=== PATIENT | male | born 1985 | race Caucasian/White ===

== ENCOUNTER 2018-04-12 17:21 | Inpatient (IN) | payer SELFPAY ==
[~2018-04-12] VITALS: Ht 180.3 cm; Wt 114.8 kg
[~2018-04-12 17:21] MED LIST: CEFAZOLIN 2 GM IVPB PREMIX 50 ML IV ONE; LR 1,000 ML IV.SOLN IV ONE; MIDAZOLAM HCL 5 MG/5 ML VIAL IVP ONE; PROPOFOL 200MG/ 20ML VIAL (DIPRIVAN) IV ONE; ROCURONIUM BROMIDE 10 MG/ML (ZEMURON) IV ONE; SEVOFLURANE 15 MIN GAS INH ONE; fentaNYL CITRATE 250 MCG/5 ML AMP IV ONE
[2018-04-12 17:30] VITALS: BP_SYST 164; BP_SYST 178
--- NOTE | 2018-04-12 17:35 | NUR ---
Patient triaged and placed in waiting room. VSS and patient appears in no acute distress at this time. Accompanied by GIRLFRIEND, awaiting available bed, and MD notified of need for MSE.
--- NOTE | 2018-04-12 19:45 | NUR ---
Pt is AAOx4 and ambulatory. Pt c/o intermittent RLQ abd pain x2days, 7/10 on pain scale. Pt states pain also radiates to upper back. Pt states that when pain first started urine was darker than usual, but since then he has been drinking water and it has cleared up. Pt also states +n and dizzness, but no vomitting. Pt has been using hot compresses and took ibuprofen last night to no relief. Will continue to monitor pt.
--- NOTE | 2018-04-12 19:45 | NUR ---
Placed in room 08 . Placed on brazing machine feeder, blood pressure machine and pulse oximeter. To gown for exam. Side rails up. Report given to MINDY Powell.
[2018-04-12] MEDS ORDERED: NACL 0.9% 1,000 ML IV ONE (20:05)
--- NOTE | 2018-04-12 20:05 | NUR ---
ER at bedside examining patient.
--- NOTE | 2018-04-12 20:12 | NUR ---
Pt ambulatory to radiology for CT accompanied by flight radio officer.
[2018-04-12] MEDS ORDERED: MORPHINE 4 MG/ML INJ. SYRINGE IVP ONE (20:15)
[2018-04-12] MEDS ORDERED: ONDANSETRON HCL 4 MG/2 ML VIAL IVP ONE (20:15)
--- NOTE | 2018-04-12 20:19 | NUR ---
Pt back from CT in stable condition
--- NOTE | 2018-04-12 20:30 | NUR ---
# 20 gauge angiocath placed to LFA. Use of asceptic technique. Opsite placed over site. Blood return noted. Blood for lab drawn from site. Flushed with 10 cc of normal saline. No evidence of infiltration noted. Patient tolerated well.
[2018-04-12 20:51] LABS: BASOPHILS # (AUTO) 0.1 K/uL (0.0-0.2); BASOPHILS % (AUTO) 0.4 % (0.0-2.0); EOSINOPHILS % (AUTO) 0.3 % (0.0-4.0); HEMATOCRIT 45.1 % (36-54); HEMOGLOBIN 15.4 g/dL (14.0-18.0); LYMPHOCYTES # (AUTO) 1.7 K/uL (1.0-5.5); LYMPHOCYTES % (AUTO) 10.4 % (20.5-51.5); MEAN CORPUSCULAR HEMOGLOBIN 30 pg (27-31); MEAN CORPUSCULAR HGB CONC 34 % (32-36); MEAN CORPUSCULAR VOLUME 87 fL (79.0-98.0); MONOCYTES % (AUTO) 6.5 % (1.7-9.3); NEUTROPHILS # (AUTO) 13.2 K/uL (1.8-7.7); NEUTROPHILS % (AUTO) 82.4 % (40.0-70.0); PLATELET COUNT (AUTO) 263 K/uL (130-430); RED BLOOD CELL COUNT(AUTO) 5.17 MIL/uL (4.2-6.2); RED CELL DISTRIBUTION WIDTH 11.7 % (9.0-15.0)
[2018-04-12 21:04] LABS: CALCIUM 9.9 mg/dL (8.4-11.0); INR 1.2 (0.80-1.20); POTASSIUM 3.8 mmol/L (3.5-5.1); PROTHROMBIN TIME 11.8 SECS (9.5-12.5)
[2018-04-12 21:10] LABS: ALBUMIN 3.9 g/dL (3.4-4.8)
[2018-04-12] MEDS ORDERED: cefTRIAXone 1 GM IVPB PREMIX 50 ML IV ONE (21:30)
[2018-04-12] MEDS ORDERED: metroNIDAZOLE 500 mg/NS 100 ML IV ONE (21:30)
[2018-04-12] MEDS ORDERED: KCL 20 mEq in D5/0.45NS 1000mL 1,000 ML IV ONE (21:30)
[2018-04-12] MEDS ORDERED: MORPHINE 4 MG/ML INJ. SYRINGE IVP PRN (22:00)
[2018-04-12] MEDS: PIPERACILLIN/TAZO 3.375/DEX-IS 50 ML IV SCH (22:00)
--- NOTE | 2018-04-12 22:05 | NUR ---
ADMISSION NOTE Received patient from ER via uriel, received report from KY GUILLEN. Patient admitted with diagnosis of ABDOMINAL PAIN, POSSIBEL APPENDICITIS. Patient oriented to hospital routine, call light, toileting and safety-patient verbalized understanding.
[2018-04-12 22:14] VITALS: BP_SYST 163
--- NOTE | 2018-04-12 22:14 | NUR ---
Patient will be admitted to care of DR. CHIU. Admitted to MST unit. Will go to room 130B. Belongings list completed. Summary report printed. Report will be given at bedside.
[2018-04-12] MEDS ORDERED: PIPERACILLIN/TAZOBACTAM 3.375 GM/VIAL (ZOSYN) IV ONE (22:27)
--- NOTE | 2018-04-12 22:45 | NUR ---
INITIAL NOTES/PHYSICAL ASSESSMENT NOTES: report given by nurse Olivera, admitted from ER , awake, alert, oriented to room ,use of call light, IV antibiotic infusing via left forearm. Instructed to be NPO, asking for ice chips and telling me Morphine did not work, will call MD. pt. quite anxious, wants also sleeping pill. keep 2 side rails up. pt. aware of surgical consult in am.
[2018-04-12 23:30] VITALS: BP_SYST 164
--- NOTE | 2018-04-12 23:30 | NUR ---
NOTES: called Dr. Myers about pt. issues. Informed about the BP 164/100. said no sleeping pill and change pain med to Dilaudid IV, call Dr. Rae about ice chips.
--- NOTE | 2018-04-12 23:37 | NUR ---
NOTES: paged Dr. Rae and call back and informed him about the pt., no ice chips, kept NPO, order pelvic US,labs in am and another IIV antibiotic of Levaquin and pt. informed.
[2018-04-12] MEDS ORDERED: hydrALAZINE HCL 20 MG/ML VIAL IVP PRN (23:45)
[2018-04-13] MEDS: HYDROmorphone 2 MG/ML VIAL IVP PRN ×3 (00:05→21:43)
--- NOTE | 2018-04-13 00:05 | NUR ---
NOTES: IV Dilaudid given for c/o rt. sided abdominal pain, no nausea nor vomiting. IVF of D51/2 NS with 20 meq @ 150 ml/hr via left forearm. still needs urine for U/A. pt. family at bedside. manda light within reach.
[2018-04-13 01:00] VITALS: BP_SYST 160
--- NOTE | 2018-04-13 01:54 | NUR ---
NOTES: noted some relief from Dilaudid but still awake with family at bedside. continue to observe.
[2018-04-13 03:57] LABS: BILIRUBIN,URINE NEGATIVE (NEGATIVE); BLOOD, URINE NEGATIVE (NEGATIVE); CLARITY/URINE CLEAR (CLEAR); COLOR,URINE YELLOW (YELLOW); GLUCOSE,URINE NEGATIVE (NEGATIVE); KETONES,URINE 3+ (NEGATIVE); LEUKOCYTE ESTERASE ,URINE NEGATIVE (NEGATIVE); NITRITE, URINE NEGATIVE (NEGATIVE); PROTEIN URINE NEGATIVE (NEGATIVE); UROBILINOGEN,URINE 0.2 (0.2-1.0)
[2018-04-13 04:28] LABS: RBC,URINE NONE SEEN /HPF (0-3)
[2018-04-13 04:29] LABS: BACTERIA,URINE FEW /HPF (None Seen); MUCUS,URINE None Seen /LPF (None Seen); WBC,URINE 0-3 /HPF (0-3)
--- NOTE | 2018-04-13 04:47 | NUR ---
CONSULTATION CALLED REASON FOR CONSULTATION: ACUTE ABDOMINAL PAIN WAS CONSULT CALLED? Y PERSON WHO WAS NOTIFIED: ABHILASH CONSULTING PHYSICIAN: DR. LAST CONSULTING PHYSICIAN'S NUMBER: [id number] ORDERING PHYSICIAN: DR. CHIU
--- NOTE | 2018-04-13 05:00 | NUR ---
NOTES: pt. been sleeping, awakened for am lab draw.
[2018-04-13] MEDS ORDERED: PIPERACILLIN/TAZOBACTAM 3.375 GM/VIAL (ZOSYN) IV ONE (05:07)
[2018-04-13] MEDS: PIPERACILLIN/TAZO 3.375/DEX-IS 50 ML IV SCH ×5 (06:00→23:09)
--- NOTE | 2018-04-13 06:30 | NUR ---
CLOSING NOTES: pt. checked, about to give pain med but was sleeping. IVF infusing. kept NPO, schedule for pelvic ultrasound this am, charge nurse Filomena ayala.
[2018-04-13 06:44] LABS: CALCIUM 8.8 mg/dL (8.4-11.0); CREATININE 0.9 mg/dL (0.55-1.30); POTASSIUM 3.9 mmol/L (3.5-5.1)
[2018-04-13 07:07] LABS: BASOPHILS % (AUTO) 0.3 % (0.0-2.0); EOSINOPHILS # (AUTO) 0.1 K/uL (0.0-0.4); EOSINOPHILS % (AUTO) 0.6 % (0.0-4.0); HEMATOCRIT 39.5 % (36-54); HEMOGLOBIN 13.2 g/dL (14.0-18.0); LYMPHOCYTES # (AUTO) 1.5 K/uL (1.0-5.5); LYMPHOCYTES % (AUTO) 13.7 % (20.5-51.5); MEAN CORPUSCULAR HEMOGLOBIN 29 pg (27-31); MEAN CORPUSCULAR HGB CONC 34 % (32-36); MEAN CORPUSCULAR VOLUME 87 fL (79.0-98.0); MONOCYTES % (AUTO) 8.8 % (1.7-9.3); NEUTROPHILS # (AUTO) 8.7 K/uL (1.8-7.7); NEUTROPHILS % (AUTO) 76.6 % (40.0-70.0); PLATELET COUNT (AUTO) 204 K/uL (130-430); RED BLOOD CELL COUNT(AUTO) 4.53 MIL/uL (4.2-6.2); RED CELL DISTRIBUTION WIDTH 11.5 % (9.0-15.0)
--- NOTE | 2018-04-13 07:15 | NUR ---
endorsed pt. to incoming shift with nurse Noe. Addendum: 04/13/18 at 0815 by Neha Erwin RN Dr. Rae here and verify about the pelvic Ultrasound, still wants it done R/O cecal mass per .
--- NOTE | 2018-04-13 07:20 | NUR ---
NOTES: asked nurse Joselin to call ultrasound to inform Dr. Rae still wants pelvic ultrasound done. paged Dr. Montesinosium also to inform about the prn Hydralazine IV that the hospital is out, need to replace and IVF to follow up with the current IVF, endorsed to Hasmukh.
--- NOTE | 2018-04-13 07:22 | NUR ---
Initial Note Received report from the night nurse Neha. Pt AOX4. No sign of distress noted at this time. Bed is at lowest position with bed alarm on. Call light within reach
--- NOTE | 2018-04-13 07:22 | NUR ---
PAGED PAGED BAYLEE BERRIOS AT [phone] SPOKE WITH ANASTASIA.
[2018-04-13 07:24] LABS: WHITE BLOOD COUNT (AUTO) 11.3 K/uL (4.8-10.8)
[2018-04-13 07:45] VITALS: BP_SYST 158
[2018-04-13] MEDS: NACL 0.9% 1,000 ML IV SCH ×2 (08:56→18:45)
--- NOTE | 2018-04-13 09:27 | NUR ---
RN Rounds Pt awake and does not show any sign of distress at this time. Bed is at lowest position with bed alarm on. Call light within reach.
--- NOTE | 2018-04-13 10:59 | NUR ---
Social Service Note: JIG GRINDER has completed the discharge plan assessment; pt has no anticipated needs upon discharge. Pt is self-pay, no insurance. Pt does not qualify for [facility]. [facility] has provided pt with a prescription discount card and listing of local [facility] clinics for follow up. JIG GRINDER will follow up as needed.
[2018-04-13 12:00] VITALS: BP_SYST 154
--- NOTE | 2018-04-13 12:30 | NUR ---
RN Rounds Pt resting and does not show any sign of distress at this time. Bed is at lowest position with bed alarm on. Call light within reach.
--- NOTE | 2018-04-13 13:15 | NUR ---
Pt taken by OR personnel for laparoscopic vs open appendectomy
[2018-04-13] MEDS ORDERED: fentaNYL CITRATE/PF 100 MCG/2 ML AMP ONE (16:11)
[2018-04-13] MEDS ORDERED: KETOROLAC TROMETHAMINE 30 MG VIAL ONE (16:11)
[2018-04-13] MEDS ORDERED: ONDANSETRON HCL 4 MG/2 ML VIAL ONE (16:13)
[2018-04-13] MEDS ORDERED: KETOROLAC TROMETHAMINE 30 MG VIAL IVP PRN (16:15)
[2018-04-13] MEDS ORDERED: fentaNYL CITRATE/PF 100 MCG/2 ML AMP IVP PRN ×2 (16:15)
[2018-04-13] MEDS ORDERED: ONDANSETRON HCL 4 MG/2 ML VIAL IVP PRN (16:15)
--- NOTE | 2018-04-13 17:10 | NUR ---
Pt back from OR. Pt in stable condition at the time of arrival. No sign of distress noted. Bed is at lowest position with bed alarm on. Call light within reach. Advised sima Vilchis INFORMATICS SCIENTIST to follow up V/S as protocol.
[2018-04-13] MEDS: metroNIDAZOLE 500 mg/NS 100 ML IV SCH ×2 (17:45→21:42)
--- NOTE | 2018-04-13 18:37 | NUR ---
Closing Note Pt AOX4. Pt S/P Laparoscopic, and appendectomy. No sign of distress noted at this time. Bed is at lowest position with bed alarm on. Call light within reach. As per Monique RN from OR pt needs to be NPO. Pt has a Right FOUZIA drainage. 75 ml collected at OR. 30 ml during my shift, [id number].
--- NOTE | 2018-04-13 19:40 | NUR ---
Opening Notes Received patient in bed resting comfortably with family at the bedside. Patient is AAOx4 and able to verbalize his needs. Lungs and heart sound WNL with no respiratory distress. Patient has abdominal pain at 6/10. IV on the Left forearm 20 gauge clean dry and intact with no infiltration or signs of infection. Dressing on the abdomen intact clean with minimal saturation. Patient is NPO until further orders. Oriented the patient to the room and use of the call light. Bed in low position and bed alarm is on. Call light placed within reach and will cont to monitor on rounds. Addendum: 04/13/18 at 2357 by Homero Jones RN FOUZIA Drain on the right side emptied out 10ml red/pink color. No odor.
[2018-04-13 20:00] VITALS: BP_SYST 155
--- NOTE | 2018-04-13 20:46 | NUR ---
Spoke with Moncho from [facility] regarding missed ATB Flagyl at 1750. Pharmacist said its okay to skip that dose and continue to 2200 and 0600 doses. Charge nurse Li made aware.
--- NOTE | 2018-04-13 22:30 | NUR ---
Administered IV ATB and pain meds and tolerated well. Patient is comfortable in bed with tolerable pain. no sob noted. Will monitor on rounds for any changes.
--- NOTE | 2018-04-14 00:16 | NUR ---
Patient in bed asleep with no pain or respiratory distress observed. Call light within reach and will cont to monitor.
[2018-04-14 00:40] VITALS: BP_SYST 140
--- NOTE | 2018-04-14 02:15 | NUR ---
Patient in bed asleep. No appearance of pain or respiratory distress. FOUZIA drain was emptied with 50ml of drainage, Light red/pink in color with no odor.
[2018-04-14] MEDS: HYDROmorphone 2 MG/ML VIAL IVP PRN ×2 (04:18→08:10)
[2018-04-14] MEDS: NACL 0.9% 1,000 ML IV SCH ×2 (04:22→15:33)
--- NOTE | 2018-04-14 04:45 | NUR ---
Patient asleep with no change of condition.
[2018-04-14] MEDS: metroNIDAZOLE 500 mg/NS 100 ML IV SCH ×3 (05:00→21:17)
[2018-04-14] MEDS: PIPERACILLIN/TAZO 3.375/DEX-IS 50 ML IV SCH ×3 (06:18→17:42)
--- NOTE | 2018-04-14 06:54 | NUR ---
Closing Notes Patient awake and able to verbalize needs. Pain is being tolerated and well managed. No respiratory distress. FOUZIA drain had 5ml. All needs have been met and will endorse to the days shift nurse. Safety precautions in place and will endorse to the day shift nurse.
[2018-04-14 07:46] LABS: BASOPHILS % (AUTO) 0.1 % (0.0-2.0); EOSINOPHILS % (AUTO) 0.2 % (0.0-4.0); HEMATOCRIT 40.1 % (36-54); HEMOGLOBIN 13.7 g/dL (14.0-18.0); LYMPHOCYTES % (AUTO) 8.8 % (20.5-51.5); MEAN CORPUSCULAR HEMOGLOBIN 30 pg (27-31); MEAN CORPUSCULAR HGB CONC 34 % (32-36); MEAN CORPUSCULAR VOLUME 87 fL (79.0-98.0); MONOCYTES % (AUTO) 8.7 % (1.7-9.3); NEUTROPHILS # (AUTO) 9.7 K/uL (1.8-7.7); NEUTROPHILS % (AUTO) 82.2 % (40.0-70.0); PLATELET COUNT (AUTO) 222 K/uL (130-430); RED BLOOD CELL COUNT(AUTO) 4.59 MIL/uL (4.2-6.2); RED CELL DISTRIBUTION WIDTH 11.8 % (9.0-15.0); WHITE BLOOD COUNT (AUTO) 11.7 K/uL (4.8-10.8)
--- NOTE | 2018-04-14 08:00 | NUR ---
Patient is A/Ox4 and able to verbalize his needs. No distress. Patient has abdominal pain at 7/10. IV on the Left forearm 20 gauge clean dry and intact with no infiltration or signs of infection. Dressing noted on the mid abdomen, clean and intact. NPO. Instructed patient basket person lights, bed locked at the lowest position, will continue to monitor.
--- NOTE | 2018-04-14 08:10 | NUR ---
Pain medication: Medicated with Dilaudid 1mg IV push for sharp right abdominal pain level 6/10 per surgeon.
[2018-04-14 08:13] VITALS: BP_SYST 154
[2018-04-14 08:15] LABS: ALBUMIN 2.8 g/dL (3.4-4.8); CALCIUM 8.8 mg/dL (8.4-11.0); CREATININE 0.85 mg/dL (0.55-1.30); POTASSIUM 4.3 mmol/L (3.5-5.1); TOTAL BILIRUBIN 0.6 mg/dL (0.0-1.0)
--- NOTE | 2018-04-14 10:00 | NUR ---
Patient is at rest, no signs of distress noted.
--- NOTE | 2018-04-14 11:11 | NUR ---
Patient ambulated the hallway with one person's assistance, but requires two people to transfer from bed to dangling position.
[2018-04-14] MEDS: HYDROmorphone 1 MG INJ. 1 MG/ML AMPUL IVP PRN ×3 (11:40→20:06)
[2018-04-14 12:00] VITALS: BP_SYST 145
--- NOTE | 2018-04-14 12:00 | NUR ---
Patient is resting, no signs of distress noted.
--- NOTE | 2018-04-14 13:57 | NUR ---
patient is resting, with family at bedside. POC is explained. They verbalized understanding.
--- NOTE | 2018-04-14 15:40 | NUR ---
patient c/o Abdominal pain. 1mg Dilaudid is given via IVP. Will reassess.
[2018-04-14 16:00] VITALS: BP_SYST 143
--- NOTE | 2018-04-14 18:05 | NUR ---
Patient is resting at this time, no signs of distress noted.
[2018-04-14 20:40] VITALS: BP_SYST 154
--- NOTE | 2018-04-14 22:00 | NUR ---
DILAUDID 1 MG IVP ADMINISTER FOR GENERAL DISCOMFORT 03/27 & HELPFUL , RESTING this hour .
--- NOTE | 2018-04-14 22:39 | NUR ---
PATIENT AWAKE ALERT USING CELL PHONE @ THE BEDSIDE , ON ROOM AIR 02 SAT 98 % VERBALLY INDICATIVE CALL LEE WITH PATIENT SAFETY MEASURES EXPLAINED VERBALIZE UNDERSTANDING / .
--- NOTE | 2018-04-14 22:41 | NUR ---
YOUNG BARROS JP DRAIN INTACT TO RIGHT LOWER ABDOMEN LIGHT COLOR SERO SANG OUT PUT IS NOTED CONTINUE TO MONITOR / .
--- NOTE | 2018-04-14 22:41 | NUR ---
ABDOMINAL DRESSING CLEAN DRY ALSO INTACT NO ACTIVE BLEEDING NOTED / .
--- NOTE | 2018-04-15 | NUR ---
NOTE PATIENT IS RESTING IN BED, STABLE, NO SIGNS OF RESPIRATORY DISTRESS. CALL LIGHT WITHIN REACH. INCENTIVE SPIROMETER IS AT BEDSIDE. BED IS LOCKED, ALARMED, AND AT THE LOWEST LEVEL. Addendum: 04/16/18 at 0146 by Lawson Taylor RN NOTE INTENDED FOR 04/15/18 AT 6553
[2018-04-15] MEDS: HYDROmorphone 1 MG INJ. 1 MG/ML AMPUL IVP PRN ×6 (00:22→20:17)
[2018-04-15] MEDS: PIPERACILLIN/TAZO 3.375/DEX-IS 50 ML IV SCH ×4 (00:22→18:50)
[2018-04-15 00:25] VITALS: BP_SYST 151
[2018-04-15] MEDS: NACL 0.9% 1,000 ML IV SCH ×3 (00:27→20:15)
--- NOTE | 2018-04-15 02:13 | NUR ---
DILAUDID 1 MG IVP ADMINISTER FOR GENERAL PAIN 03/27 & HELPFUL , RESTING THIS HOUR 09/27
--- NOTE | 2018-04-15 04:48 | NUR ---
YOUNG BARROS DRAIN INTACT LOWER ABDOMEN 30 ML OUT SERO SANG LIGHT REDISH COLOR , PATIENT AWAKE ALERT .
[2018-04-15] MEDS: metroNIDAZOLE 500 mg/NS 100 ML IV SCH ×3 (05:19→22:39)
--- NOTE | 2018-04-15 07:23 | NUR ---
Patient is A/Ox4 and able to verbalize his needs. No distress.IV on the Left forearm 20 gauge clean dry and intact with no infiltration or signs of infection. Dressing noted on the mid abdomen, clean and intact. NPO at this time. Instructed patient telephone lines repairer lights, bed locked at the lowest position, will continue to monitor.
[2018-04-15] MEDS: ONDANSETRON HCL 4 MG/2 ML VIAL IVP PRN ×3 (07:29→20:31)
[2018-04-15 08:00] VITALS: BP_SYST 151
--- NOTE | 2018-04-15 09:35 | NUR ---
DR. LAST AT BEDSIDE TO DO DRESSING CHANGE. PATIENT TOLERATED PROCEDURE WITHOUT DISTRESS.
--- NOTE | 2018-04-15 11:51 | NUR ---
PATIENT IS RESTING AT THIS TIME. NO SIGNS OF DISTRESS NOTED.
[2018-04-15 12:00] VITALS: BP_SYST 144
--- NOTE | 2018-04-15 14:01 | NUR ---
PATIENT'S URINE COLOR HAS BEEN KAELA, ALBEIT OUTPUT IS NORMAL. O2 SAT AT 85-87% ON ROOM AIR, ALBEIT NO SIGNS OF APPARENT DISTRESS NOTED. WILL CONTINUE TO MONITOR, AND WILL INFORM DR. CHIU
--- NOTE | 2018-04-15 15:42 | NUR ---
PATIENT'S REDUCED O2 SAT AND KAELA URINE IS INFORMED TO DR. CHIU. NO NEW ORDERS WERE GIVEN.
[2018-04-15 16:00] VITALS: BP_SYST 145
--- NOTE | 2018-04-15 16:05 | NUR ---
60ML OF SEROSANGUINOUS DRAINAGE COLLECTED FOR FOUZIA.
--- NOTE | 2018-04-15 18:20 | NUR ---
PATIENT HAD A SMALL AMOUNT OF LIQUID BM.
--- NOTE | 2018-04-15 19:30 | NUR ---
PATIENT IS HAVING A SENSE OF BM. 60ML OF SEROSANGUINOUS DRAINAGE IS COLLECTED FROM THE DRAINAGE.
[2018-04-15 19:55] VITALS: BP_SYST 159
--- NOTE | 2018-04-15 19:55 | NUR ---
INITIAL NOTE AT INITIAL ASSESSMENT, PATIENT IS RESTING IN BED, STABLE, NO SIGNS OF RESPIRATORY DISTRESS. GIRLFRIEND IS AT BEDSIDE. PATIENT VERBALIZES MODERATE PAIN, HE HAS REQUESTED PAIN MEDICATION TO BE BROUGHT AT 2030 WITH HIS NIGHT TIME MEDICATIONS, REQUEST WILL BE FOLLOWED UP PER PRN ORDERS FOR MODERATE PAIN. PLAN OF CARE FOR THE EVENING IS COMMUNICATED WITH PATIENT AND PATIENT'S GIRLFRIEND AT BEDSIDE. CALL LIGHT- TEACH BACK IS SUCCESSFUL. INCENTIVE SPIROMETER IS AT BEDSIDE. BED IS LOCKED, ALARMED, AND AT THE LOWEST LEVEL.
--- NOTE | 2018-04-15 21:51 | NUR ---
INCENTIVE SPIROMETER TEACHING/ NOTE PATIENT IS RESTING IN BED, STABLE, NO SIGNS OF RESPIRATORY DISTRESS. FAMILY IS AT BEDSIDE. CALL LIGHT IS WITHIN REACH. INCENTIVE SPIROMETER- TEACH BACK IS SUCCESSFUL, PATIENT IS AVERAGING 1000 ML AT THIS TIME WITHOUT PAIN; HE VERBALIZES HE KNOWS TO PRACTICE "10 TIMES AN HOUR". BED IS LOCKED, ALARMED, AND AT THE LOWEST LEVEL.
--- NOTE | 2018-04-15 23:27 | NUR ---
NOTE PATIENT IS RESTING IN BED, STABLE, NO SIGNS OF RESPIRATORY DISTRESS. GIRLFRIEND IS AT BEDSIDE. CALL LIGHT WITHIN REACH. INCENTIVE SPIROMETER IS AT BEDSIDE. BED IS LOCKED, ALARMED, AND AT THE LOWEST LEVEL.
--- NOTE | 2018-04-16 00:50 | NUR ---
NOTE PATIENT IS RESTING IN BED, STABLE, NO SIGNS OF RESPIRATORY DISTRESS. PATIENT'S BP IS ELEVATED AT THIS TIME, BUT PATIENT ALSO VERBALIZES IN MODERATE PAIN AT THIS TIME, BP WILL BE REASSESSED AFTER ADMINISTRATION OF PRN MODERATE PAIN MEDICATION. CALL LIGHT WITHIN REACH. INCENTIVE SPIROMETER IS AT BEDSIDE. BED IS LOCKED, ALARMED, AND AT THE LOWEST LEVEL.
[2018-04-16] MEDS: HYDROmorphone 1 MG INJ. 1 MG/ML AMPUL IVP PRN ×5 (00:53→20:57)
[2018-04-16] MEDS: PIPERACILLIN/TAZO 3.375/DEX-IS 50 ML IV SCH ×5 (00:55→23:07)
[2018-04-16] MEDS: ONDANSETRON HCL 4 MG/2 ML VIAL IVP PRN ×4 (01:55→20:57)
[2018-04-16 02:02] VITALS: BP_SYST 151
--- NOTE | 2018-04-16 02:46 | NUR ---
NOTE PATIENT IS SLEEPING, STABLE, NO SIGNS OF RESPIRATORY DISTRESS. CALL LIGHT WITHIN REACH. INCENTIVE SPIROMETER IS AT BEDSIDE. BED IS LOCKED, ALARMED, AND AT THE LOWEST LEVEL. NOTE
[2018-04-16] MEDS: NACL 0.9% 1,000 ML IV SCH ×3 (04:46→20:45)
--- NOTE | 2018-04-16 04:52 | NUR ---
NOTE PATIENT IS RESTING IN BED, STABLE, NO SIGNS OF RESPIRATORY DISTRESS. PATIENT VERBALIZES 5/10 PAIN, PRN MEDICATION FOR MODERATE PAIN WILL BE GIVEN AT THIS TIME. PATIENT IS ALSO ASSISTED TO BEDPAN AT THIS TIME. CALL LIGHT WITHIN REACH. INCENTIVE SPIROMETER IS AT BEDSIDE. BED IS LOCKED, ALARMED, AND AT THE LOWEST LEVEL.
[2018-04-16] MEDS: metroNIDAZOLE 500 mg/NS 100 ML IV SCH ×3 (06:11→21:03)
--- NOTE | 2018-04-16 06:31 | NUR ---
CLOSING NOTE PATIENT IS SLEEPING, STABLE, NO SIGNS OF RESPIRATORY DISTRESS. PATIENT'S FOUZIA DRAINAGE HAS SLOWED DOWN OVER NIGHT, STARTING FROM CLEAR/ RED/ ORANGE COLOR TO CLEAR/ YELLOW. CALL LIGHT IS WITHIN REACH. BED IS LOCKED, ALARMED, AND AT THE LOWEST LEVEL. WILL CONTINUE TO MONITOR UNTIL SHIFT REPORT IS GIVEN AT BEDSIDE TO AM NURSE.
[2018-04-16 07:05] LABS: CALCIUM 8.5 mg/dL (8.4-11.0); CREATININE 0.88 mg/dL (0.55-1.30); POTASSIUM 3.9 mmol/L (3.5-5.1)
[2018-04-16 07:07] LABS: BASOPHILS % (AUTO) 0.1 % (0.0-2.0); EOSINOPHILS # (AUTO) 0.1 K/uL (0.0-0.4); EOSINOPHILS % (AUTO) 0.6 % (0.0-4.0); HEMATOCRIT 41.2 % (36-54); HEMOGLOBIN 14.5 g/dL (14.0-18.0); LYMPHOCYTES # (AUTO) 1.3 K/uL (1.0-5.5); LYMPHOCYTES % (AUTO) 9.1 % (20.5-51.5); MEAN CORPUSCULAR HEMOGLOBIN 31 pg (27-31); MEAN CORPUSCULAR HGB CONC 35 % (32-36); MEAN CORPUSCULAR VOLUME 87 fL (79.0-98.0); MONOCYTES # (AUTO) 1.3 K/uL (0.0-1.0); NEUTROPHILS % (AUTO) 81.2 % (40.0-70.0); PLATELET COUNT (AUTO) 287 K/uL (130-430); RED BLOOD CELL COUNT(AUTO) 4.75 MIL/uL (4.2-6.2); RED CELL DISTRIBUTION WIDTH 11.8 % (9.0-15.0); WHITE BLOOD COUNT (AUTO) 14.7 K/uL (4.8-10.8)
[2018-04-16 08:20] VITALS: BP_SYST 155
--- NOTE | 2018-04-16 08:53 | NUR ---
OPENING NOTE REPORT IS RECEIVED FROM PROSTHETIC TECHNICIAN NURSE AND CARE IS ENDORSED TO MYSELF. PT IS RECEIVED AWAKE, ALERT, AND ORIENTED X4. PT HAS INCENTIVE SPIROMETER THAT REACHES UP TO 1000ML. PT IS NPO AND HAS IV LOCATED IN LEFT AC 20 WITH NS INFUSING AT 125ML/HR. PT HAS ABDOMINAL DRESSING THAT IS CLEAN, DRY, AND INTACT AND RIGHT FOUZIA THAT HAS APPROXIMATE 20ML OF YELLOW DRAINAGE. PT HAS WATERY FLUID DIARRHEA AND NO FOUL ODOR. WHITE BOARD IS UPDATED AND PLAN OF CARE FOR TODAY IS DISCUSSED. CURRENT NEEDS ARE MET. BED IS AT LOWEST POSITION, THREE SIDE RAILS UP, BED ALARM IS ON. WILL CONTINUE TO MONITOR.
--- NOTE | 2018-04-16 10:15 | NUR ---
ROUNDS PT IS AWAKE AND ALERT. NO SIGNS OR SYMPTOMS OF DISTRESS OR SOB NOTED. PT DENIES ANY PAIN. STEPFATHER IS AT BEDSIDE. CURRENT NEEDS ARE MET. BED IS AT LOWEST POSITION, CALL LIGHT WITHIN REACH, THREE SIDE RAILS UP, BED ALARM IS ON. WILL CONTINUE TO MONITOR.
[2018-04-16 11:13] VITALS: BP_SYST 157
--- NOTE | 2018-04-16 12:04 | NUR ---
Nutrition Update Cezar Scale 16 noted. Pt admitted for acute abd pain/possible appendicitis. Diet: NPO BMI: 35.3 kg/m2 RD to follow per nutrition care standards.
--- NOTE | 2018-04-16 12:17 | NUR ---
ROUNDS PT IS AWAKE AND ALERT. NO SIGNS OR SYMPTOMS OF DISTRESS OR SOB NOTED. PT DENIES ANY PAIN. NEW BAG OF IV FLUIDS WERE HUNG AND INFUSING. CURRENT NEEDS ARE MET. BED IS AT LOWEST POSITION, THREE SIDE RAILS UP, BED ALARM IS ON. WILL CONTINUE TO MONITOR.
--- NOTE | 2018-04-16 12:18 | NUR ---
DR. LAST ROUNDING PER DR LAST, CHANGE PT TO CLEAR LIQUID DIET. DRAINED FOUZIA DRAIN AND EMPTIED APPROXIMATELY 75ML OF YELLOW AND PINK DRAINAGE. WILL CONTINUE TO MONITOR.
--- NOTE | 2018-04-16 14:20 | NUR ---
ROUNDS LATE ENTRY DUE TO PT CARE: PT IS AWAKE AND ALERT. NO SIGNS OR SYMPTOMS OF DISTRESS OR SOB NOTED. PT IS COMPLAINING OF PAIN OF 5 OUT OF 10 IN ABDOMINAL INCISION AREA. GAVE PRN DILAUDID AND ADVISED PT OF INCREASED RISK FOR FALLS AND THE NEED TO USE CALL LIGHT IF HE WANTS TO GET OUT OF BED. PT VERBALIZED UNDERSTANDING. CURRENT NEEDS ARE MET. BED IS AT LOWEST POSITION, CALL LIGHT WITHIN REACH, THREE SIDE RAILS UP, BED ALARM IS ON. WILL CONTINUE TO MONITOR.
--- NOTE | 2018-04-16 14:25 | NUR ---
Discharge planning: Pt's diet advanced to clear liquids. Independent with ADLS. I do not anticipate any barriers to discharge at this time. Pt has already received [facility] information from our social work assistant. GREER GUILLEN
[2018-04-16 15:18] VITALS: BP_SYST 159
--- NOTE | 2018-04-16 16:36 | NUR ---
ROUNDS PT IS AWAKE AND ALERT. WATCHING TV. NO SIGNS OR SYMPTOMS OF DISTRESS OR SOB NOTED. PT DENIES ANY PAIN. CURRENT NEEDS ARE MET. BED IS AT LOWEST POSITION, CALL LIGHT WITHIN REACH, THREE SIDE RAILS UP, BED ALARM IS ON. WILL CONTINUE TO MONITOR.
--- NOTE | 2018-04-16 18:18 | NUR ---
CLOSING NOTE PT IS AWAKE AND ALERT. GIRLFRIEND IS AT BEDSIDE. NO SIGNS OR SYMPTOMS OF DISTRESS OR SOB NOTED. PT DENIES ANY PAIN. ZOFRAN WAS GIVEN PER PT REQUEST PRIOR TO DINNER. CURRENT NEEDS ARE MET. BED IS AT LOWEST POSITION, CALL LIGHT WITHIN REACH, THREE SIDE RAILS UP, BED ALARM IS ON. WILL CONTINUE TO MONITOR UNTIL CARE AND REPORT IS GIVEN TO MANAGER TRANSITION NURSE.
[2018-04-16 19:45] VITALS: BP_SYST 148
--- NOTE | 2018-04-16 19:45 | NUR ---
INITIAL NOTE AT INITIAL ASSESSMENT, PATIENT IS RESTING IN BED, STABLE, NO SIGNS OF RESPIRATORY DISTRESS. BROTHER IS AT BEDSIDE. PATIENT VERBALIZES MODERATE PAIN, PRN ORDERS FOR MODERATE PAIN WILL BE GIVEN. PLAN OF CARE FOR THE EVENING IS COMMUNICATED WITH PATIENT AND PATIENT'S BROTHER AT BEDSIDE. CALL LIGHT- TEACH BACK IS SUCCESSFUL. INCENTIVE SPIROMETER IS AT BEDSIDE. BED IS LOCKED, ALARMED, AND AT THE LOWEST LEVEL.
--- NOTE | 2018-04-16 21:40 | NUR ---
INCENTIVE SPIROMETER TEACHING/ NOTE PATIENT IS RESTING IN BED, STABLE, NO SIGNS OF RESPIRATORY DISTRESS. FAMILY IS AT BEDSIDE. CALL LIGHT IS WITHIN REACH. INCENTIVE SPIROMETER- TEACH BACK IS SUCCESSFUL, PATIENT IS STILL AVERAGING 1000 ML AT THIS TIME WITHOUT PAIN; HE VERBALIZES HE KNOWS TO PRACTICE "10 TIMES AN HOUR". BED IS LOCKED, ALARMED, AND AT THE LOWEST LEVEL.
--- NOTE | 2018-04-16 23:36 | NUR ---
NOTE PATIENT IS SLEEPING, STABLE, NO SIGNS OF RESPIRATORY DISTRESS. CALL LIGHT WITHIN REACH. BED IS LOCKED, ALARMED, AND AT THE LOWEST LEVEL.
[2018-04-17] VITALS: BP_SYST 134
--- NOTE | 2018-04-17 01:32 | NUR ---
NOTE PATIENT IS SLEEPING, STABLE, NO SIGNS OF RESPIRATORY DISTRESS. CALL LIGHT WITHIN REACH. BED IS LOCKED, ALARMED, AND AT THE LOWEST LEVEL.
--- NOTE | 2018-04-17 03:28 | NUR ---
NOTE PATIENT IS SLEEPING, STABLE, NO SIGNS OF RESPIRATORY DISTRESS. CALL LIGHT WITHIN REACH. BED IS LOCKED, ALARMED, AND AT THE LOWEST LEVEL.
--- NOTE | 2018-04-17 05:10 | NUR ---
NOTE PATIENT IS RESTING IN BED, STABLE, NO SIGNS OF RESPIRATORY DISTRESS. PATIENT VERBALIZES MODERATE PAIN, PRN MEDICATION FOR MODERATE PAIN WILL BE GIVEN. CALL LIGHT WITHIN REACH. BED IS LOCKED, ALARMED, AND AT THE LOWEST LEVEL.
[2018-04-17] MEDS: NACL 0.9% 1,000 ML IV SCH ×3 (05:22→20:48)
[2018-04-17] MEDS: metroNIDAZOLE 500 mg/NS 100 ML IV SCH ×3 (05:22→23:02)
[2018-04-17] MEDS: HYDROmorphone 1 MG INJ. 1 MG/ML AMPUL IVP PRN ×3 (05:23→20:47)
[2018-04-17] MEDS: ONDANSETRON HCL 4 MG/2 ML VIAL IVP PRN (05:23)
[2018-04-17 06:01] LABS: BASOPHILS % (AUTO) 0.3 % (0.0-2.0); EOSINOPHILS # (AUTO) 0.3 K/uL (0.0-0.4); LYMPHOCYTES # (AUTO) 1.7 K/uL (1.0-5.5); RED BLOOD CELL COUNT(AUTO) 4.39 MIL/uL (4.2-6.2); WHITE BLOOD COUNT (AUTO) 9.3 K/uL (4.8-10.8)
[2018-04-17 06:30] LABS: EOSINOPHILS % (AUTO) 3.7 % (0.0-4.0); HEMATOCRIT 38.5 % (36-54); HEMOGLOBIN 12.9 g/dL (14.0-18.0); LYMPHOCYTES % (AUTO) 18.7 % (20.5-51.5); MEAN CORPUSCULAR HEMOGLOBIN 29 pg (27-31); MEAN CORPUSCULAR HGB CONC 34 % (32-36); MEAN CORPUSCULAR VOLUME 88 fL (79.0-98.0); MONOCYTES # (AUTO) 0.9 K/uL (0.0-1.0); MONOCYTES % (AUTO) 9.4 % (1.7-9.3); NEUTROPHILS # (AUTO) 6.4 K/uL (1.8-7.7); NEUTROPHILS % (AUTO) 67.9 % (40.0-70.0); PLATELET COUNT (AUTO) 273 K/uL (130-430); RED CELL DISTRIBUTION WIDTH 11.9 % (9.0-15.0)
--- NOTE | 2018-04-17 06:45 | NUR ---
CLOSING NOTE PATIENT IS RESTING IN BED, STABLE, NO SIGNS OF RESPIRATORY DISTRESS. PATIENT VERBALIZES NO PAIN. CALL LIGHT WITHIN REACH. BED IS LOCKED, ALARMED, AND AT THE LOWEST LEVEL. ONLY 80MLS OF DRAINAGE FROM FOUZIA DRAIN TODAY OF CLEAR/ YELLOW/ ORANGE FLUID. WILL CONTINUE TO MONITOR UNTIL SHIFT REPORT IS GIVEN AT BEDSIDE.
[2018-04-17] MEDS: PIPERACILLIN/TAZO 3.375/DEX-IS 50 ML IV SCH ×3 (06:49→17:24)
--- NOTE | 2018-04-17 08:10 | NUR ---
OPENING NOTE LATE ENTRY DUE TO PT CARE: REPORT IS RECEIVED FROM GROOVING LATHE TENDER NURSE AND CARE IS ENDORSED TO MYSELF. PT IS RECEIVED AWAKE, ALERT, AND ORIENTED X4. PT HAS ABDOMINAL INCISION THAT IS CLEAN, DRY, AND INTACT. FOUZIA IS LOCATED RIGHT ABDOMEN, I EMPTIED IT WITH APPROXIMATELY 55ML OF PINK AND YELLOW DRAINAGE. WHITE BOARD IS UPDATED AND PLAN OF CARE IS DISCUSSES WITH PT. CURRENT NEEDS ARE MET. BED IS AT LOWEST POSITION, CALL LIGHT WITHIN REACH, THREE SIDE RAILS UP, BED ALARM IS ON. WILL CONTINUE TO MONITOR.
--- NOTE | 2018-04-17 10:20 | NUR ---
ROUNDS LATE ENTRY DUE TO PT CARE: PT IS AWAKE AND ALERT. NO SIGNS OR SYMPTOMS OF DISTRESS OR SOB NOTED. PT IS COMPLAINING OF PAIN AND PRN DILAUDID WAS GIVEN AND PT ADVISED OF INCREASED RISK FOR FALLS. PHYSICAL THERAPY WAS WORKING WITH PT. CURRENT NEEDS ARE MET. BED IS AT LOWEST POSITION, CALL LIGHT WITHIN REACH, THREE SIDE RAILS UP, BED ALARM IS ON. WILL CONTINUE TO MONITOR.
[2018-04-17 11:25] VITALS: BP_SYST 155
--- NOTE | 2018-04-17 12:10 | NUR ---
ROUNDS LATE ENTRY DUE TO PT CARE: PT IS AWAKE AND ALERT. NO SIGNS OR SYMPTOMS OF DISTRESS OR SOB NOTED. PT DENIES ANY PAIN. CURRENT NEEDS ARE MET. BED IS AT LOWEST POSITION, CALL LIGHT WITHIN REACH, THREE SIDE RAILS UP, BED ALARM IS ON. WILL CONTINUE TO MONITOR.
--- NOTE | 2018-04-17 14:18 | NUR ---
ROUNDS LATE ENTRY DUE TO PT CARE: PT IS AWAKE AND ALERT. NO SIGNS OR SYMPTOMS OF DISTRESS OR SOB NOTED. PT DENIES ANY PAIN. GIRLFRIEND IS AT BEDSIDE. CURRENT NEEDS ARE MET. BED IS AT LOWEST POSITION, CALL LIGHT WITHIN REACH, THREE SIDE RAILS UP, BED ALARM IS ON. WILL CONTINUE TO MONITOR.
[2018-04-17 15:14] VITALS: BP_SYST 136
--- NOTE | 2018-04-17 16:02 | NUR ---
ROUNDS PT IS AWAKE AND ALERT. NO SIGNS OR SYMPTOMS OF DISTRESS OR SOB NOTED. PT DENIES ANY PAIN. CURRENT NEEDS ARE MET. BED IS AT LOWEST POSITION, CALL LIGHT WITHIN REACH, THREE SIDE RAILS UP, BED ALARM IS ON. WILL CONTINUE TO MONITOR.
--- NOTE | 2018-04-17 18:13 | NUR ---
CLOSING NOTE PT IS RESTING IN BED. NO SIGNS OR SYMPTOMS OF DISTRESS OR SOB NOTED. PT DENIES ANY PAIN. CURRENT NEEDS ARE MET. BED IS AT LOWEST POSITION, CALL LIGHT WITHIN REACH, THREE SIDE RAILS UP, BED ALARM IS ON. WILL CONTINUE TO MONITOR.
[2018-04-17 19:45] VITALS: BP_SYST 156
--- NOTE | 2018-04-17 19:45 | NUR ---
INITIAL NOTE AT INITIAL ASSESSMENT, PATIENT IS RESTING IN BED, STABLE, NO SIGNS OF RESPIRATORY DISTRESS. GIRLFRIEND IS AT BEDSIDE. PATIENT VERBALIZES NO PAIN. PLAN OF CARE FOR THE EVENING IS COMMUNICATED WITH PATIENT AND PATIENT'S GIRLFRIEND AT BEDSIDE. CALL LIGHT- TEACH BACK IS SUCCESSFUL. INCENTIVE SPIROMETER IS AT BEDSIDE. BEDSIDE COMMODE IS AT BEDSIDE. BED IS LOCKED, ALARMED, AND AT THE LOWEST LEVEL.
--- NOTE | 2018-04-17 21:41 | NUR ---
INCENTIVE SPIROMETER TEACHING/ NOTE PATIENT IS RESTING IN BED, STABLE, NO SIGNS OF RESPIRATORY DISTRESS. BROTHER IS AT BEDSIDE. CALL LIGHT IS WITHIN REACH. INCENTIVE SPIROMETER- TEACH BACK IS SUCCESSFUL, PATIENT IS STILL AVERAGING 1500 ML AT THIS TIME WITHOUT PAIN; HE VERBALIZES HE KNOWS TO PRACTICE "10 TIMES AN HOUR". BED IS LOCKED, ALARMED, AND AT THE LOWEST LEVEL.
--- NOTE | 2018-04-17 23:36 | NUR ---
NOTE PATIENT IS SLEEPING, STABLE, NO SIGNS OF RESPIRATORY DISTRESS. CALL LIGHT IS WITHIN REACH. BED IS LOCKED, ALARMED, AND AT THE LOWEST LEVEL.
[2018-04-18] VITALS: BP_SYST 145
[2018-04-18] MEDS ORDERED: ACETAMINOPHEN 325 MG TABLET PO PRN (00:15)
[2018-04-18] MEDS: PIPERACILLIN/TAZO 3.375/DEX-IS 50 ML IV SCH ×4 (00:34→17:39)
[2018-04-18] MEDS: HYDROmorphone 1 MG INJ. 1 MG/ML AMPUL IVP PRN ×2 (01:32→08:30)
--- NOTE | 2018-04-18 01:32 | NUR ---
PATIENT ASSISTED TO BEDSIDE COMMODE / NOTE PATIENT IS ASSISTED TO BEDSIDE COMMODE AT THIS TIME WITH WALKER, PATIENT IS STABLE AND NEEDS MINIMUM ASSISTANCE, PATIENT TOLERATED WELL. HE IS STABLE, NO SIGNS OF RESPIRATORY DISTRESS. PATIENT IS ASSISTED BACK INTO BED AND POSITIONED FOR COMFORT. CALL LIGHT IS WITHIN REACH OF PATIENT. BED IS LOCKED, ALARMED, AND AT THE LOWEST LEVEL.
--- NOTE | 2018-04-18 03:29 | NUR ---
NOTE PATIENT IS SLEEPING, STABLE, NO SIGNS OF RESPIRATORY DISTRESS. CALL LIGHT IS WITHIN REACH OF PATIENT. BED IS LOCKED, ALARMED, AND AT THE LOWEST LEVEL.
[2018-04-18] MEDS: NACL 0.9% 1,000 ML IV SCH ×2 (04:45→12:45)
--- NOTE | 2018-04-18 05:16 | NUR ---
NOTE PATIENT IS SLEEPING, STABLE, NO SIGNS OF RESPIRATORY DISTRESS. CALL LIGHT WITHIN REACH. BED IS LOCKED, ALARMED, AND AT THE LOWEST LEVEL.
[2018-04-18] MEDS: metroNIDAZOLE 500 mg/NS 100 ML IV SCH ×3 (05:41→23:05)
--- NOTE | 2018-04-18 06:26 | NUR ---
CLOSING NOTE PATIENT IS SLEEPING, STABLE, NO SIGNS OF RESPIRATORY DISTRESS. CALL LIGHT WITHIN REACH. BED IS LOCKED, ALARMED, AND AT THE LOWEST LEVEL. WILL CONTINUE TO MONITOR UNTIL SHIFT REPORT IS GIVEN AT BEDSIDE TO AM NURSE.
--- NOTE | 2018-04-18 07:55 | NUR ---
OPENING NOTE PATIENT A/OX3. NO COMPLAINTS OF PAIN OR DIFFICULTY BREATHING ON ROOM AIR. VITAL SIGNS TAKEN. EXTENSIONS OF RN, GRAIN PACKER AND HIGHWAY ENGINEERING TEACHER WRITTEN ON WHITE BOARD. PLAN OF CARE DISCUSSED WITH PATIENT. ALL QUESTIONS AND CONCERNS ADDRESSED.
[2018-04-18 08:10] VITALS: BP_SYST 130
--- NOTE | 2018-04-18 08:50 | NUR ---
DR LAST ROUNDS REMOVES FOUZIA DRAIN AND CHANGES DRESSING ON ABDOMEN. PATIENT TOLERATED WELL.
--- NOTE | 2018-04-18 10:10 | NUR ---
ROUNDS PATIENT SLEEPING IN BED. NO COMPLAINTS OF PAIN OR DIFFICULTY BREATHING AT THIS TIME.
--- NOTE | 2018-04-18 12:28 | NUR ---
PATIENT AMBULATING WITH PHYSICAL THERAPY AND A WALKER.
[2018-04-18 12:30] VITALS: BP_SYST 154
[2018-04-18] MEDS: HYDROcodone/ACETAMIN 10-325 MG TAB PO PRN ×2 (13:35→20:48)
--- NOTE | 2018-04-18 14:02 | NUR ---
Dietitian Recommendations * Recommend continuing clear liquid diet per MD * Consider soft (low fiber/bland) diet upon diet advancement LP, RD Please refer to Nutrition Assessment for details.
--- NOTE | 2018-04-18 14:40 | NUR ---
PATIENT RESTING: Patient resting quietly. No acute distress noted. Vital signs within normal range.
--- NOTE | 2018-04-18 15:08 | NUR ---
PHYSICAL THERAPY CO-SIGN The Physical Therapy Progress Notes documented by Lead Sustainability Specialist have been reviewed. I CONCUR W/LINING SETTER NOTE; CONT PER TX PLAN Reviewed/Co-Signed by: Shalonda Mcelroy PT Documentation Done by: SIMONA QUINONES PTA Addendum: 04/18/18 at 1508 by Shalonda Mcelroy PT Amended: Links added.
--- NOTE | 2018-04-18 16:10 | NUR ---
Bedside commode Patient assisted to bedside commode. Large bowel movement, dark watery stool.
[2018-04-18 16:25] VITALS: BP_SYST 145
--- NOTE | 2018-04-18 18:45 | NUR ---
CLOSING NOTE PATIENT LAYING IN BED, GIRLFRIEND AT BEDSIDE. NO COMPLAINTS OF PAIN OR DIFFICULTY BREATHING ON ROOM AIR. ALL NEEDS MET THROUGHOUT SHIFT. WILL ENDORSE PLAN OF CARE TO NOC SHIFT.
--- NOTE | 2018-04-18 19:40 | NUR ---
ROUNDS PATIENT RESTING COMFORTABLY IN BED, NOT IN DISTRESS, VITALS STABLE. DENIES AY PAIN AND DISCOMFORT AT THIS TIME. ASSESSMENT DONE AND DOCUMENTED. SEE FLOWSHEET. NEEDS ATTENDED TO. SAFETY AND FALL PRECAUTION MEASURES IN PLACED. BED IN LOW AND LOCKED POSITION. BED ALARM ON. CALL LIGHT PLACED WITHIN REACH.
--- NOTE | 2018-04-18 21:10 | NUR ---
MEDICATION DUE MEDICATIONS GIVEN SCHEDULED, TOLERATED WELL. WILL CONTINUE TO MONITOR.
[2018-04-18 23:48] VITALS: BP_SYST 143
--- NOTE | 2018-04-19 | NUR ---
PATIENT RESTING: Patient resting quietly. No acute distress noted. Vital signs within normal range.
--- NOTE | 2018-04-19 00:14 | NUR ---
PATIENT RESTING: Patient resting quietly. No acute distress noted. Vital signs within normal range.
[2018-04-19] MEDS: PIPERACILLIN/TAZO 3.375/DEX-IS 50 ML IV SCH ×2 (00:28→05:24)
[2018-04-19] MEDS: HYDROcodone/ACETAMIN 10-325 MG TAB PO PRN ×2 (01:14→10:48)
--- NOTE | 2018-04-19 01:55 | NUR ---
ROUNDS PATIENT ASLEEP, NO SOB NOTED NOR PAIN AND DISCOMFORT. WILL CONTINUE TO MONITOR.
--- NOTE | 2018-04-19 04:05 | NUR ---
PATIENT RESTING: Patient resting quietly. No acute distress noted. Vital signs within normal range.
[2018-04-19] MEDS: NACL 0.9% 1,000 ML IV SCH (05:19)
[2018-04-19] MEDS: metroNIDAZOLE 500 mg/NS 100 ML IV SCH ×2 (06:01→13:36)
--- NOTE | 2018-04-19 06:46 | NUR ---
CLOSING NOTES PATIENT AWAKE, VITALS STABLE, DENIES ANY PAIN AND DISCOMFORT AT THIS TIME. ALL NEEDS ATTENDED TO. SAFETY MEASURES MAINTAINED. CALL LIGHT PLACED WITHIN REACH.
--- NOTE | 2018-04-19 07:20 | NUR ---
AM AROUNDS: PATIENT LYING ON THE BED,AWAKE,WATCHING TV. ABDOMINAL DRESSING CLEAN AND DRY. CALL LIGHT WITH IN REACH. BED LOCKED AT LOWEST POSITION. STABLE.
[2018-04-19 08:59] VITALS: BP_SYST 136
--- NOTE | 2018-04-19 09:00 | NUR ---
rn rounds: no meds due this time. denies any pain.
--- NOTE | 2018-04-19 10:54 | NUR ---
PAIN MEDS: C/O POST OP PAIN AND DUE PO PAIN MEDS GIVEN PER REQUEST. NO COMPLICATIONS NOTED.
[2018-04-19 12:15] VITALS: BP_SYST 145
--- NOTE | 2018-04-19 13:47 | NUR ---
IVPB: DUE IV FLAGYL GIVEN SCHEDULED.NO COMPLICATIONS NOTED. PATIENT C/O MILD PAIN ,NO MEDS NEEDED THIS TIME PER PATIENT.
--- NOTE | 2018-04-19 14:45 | NUR ---
DC ORDER: PATIENT SEEN BY DR CHIU WITH ORDERS DC HOME AND F/U WITH DR LAST NEXT WEEK.
[2018-04-19 15:26] VITALS: BP_SYST 145
[2018-04-19 16:36] VITALS: BP_SYST 140
--- NOTE | 2018-04-19 16:42 | NUR ---
PAIN MEDS: TYLENOL PO GIVEN FOR PAIN LEVEL 3/10 PER PATIENT' REQUEST.
--- NOTE | 2018-04-19 16:58 | NUR ---
DC NOTES: TRANSITIONAL CARE DOCUMENTS GIVEN TO PATIENT ,VERBALIZED UNDERSTANDING OF INSTRUCTION.PERSONAL BELONGINGS COMPLETED AND SEND HOME WITH THE PATIENT. IV REMOVED,DRY GAUZE APPLIED TO THE SITE AND NO BLEEDING NOTED.ACCOMPANIED HOME BY HIS GIRLFRIEND MYAH AND SISTER IN LAW IN STABLE CONDITION.
== END 2018-04-19 16:55 | disposition home or self-care (01) | DRG 329 ==
LOC: SED 17:21 → SMU 21:28
PROVIDERS: ADMIT Family Medicine; ATTEND Family Medicine
PROC: 0DTB0ZZ Resection of Ileum, Open Approach (ICD-10-PCS; 2018-04-13)
PROC: 0DTJ4ZZ Resection of Appendix, Percutaneous Endoscopic Approach (ICD-10-PCS; principal; 2018-04-13 13:00)
DX: K63.9 Disease of intestine, unspecified (principal); K35.2 Acute appendicitis with generalized peritonitis; Z88.8 Allergy status to other drugs, medicaments and biological substances
CPT/HCPCS: 36415; 71045; 76857; 80048; 80053; 81000-TC; 82150-TC; 82550-TC; 83605; 83690-TC; 83735-TC; 85025; 85610-TC; 85730-TC; 87040-TC; 87070-TC; 87081; 87186-TC; 88307; 97110-GP; 97116-GP; 97530-GP; 97535-GP; J0690; J0696; J1170; J1885; J1956; J2250; J2270; J2405; J2543; J2704; J3010; J3490; J7030; J7120

== ENCOUNTER 2020-11-22 16:11 | Emergency (ER) | payer BC, SELFPAY ==
[~2020-11-22] VITALS: Ht 180.3 cm; Wt 104.3 kg
[2020-11-22 16:22] VITALS: BP_SYST 152
--- NOTE | 2020-11-22 16:22 | NUR ---
Placed in room 3 . Placed on monitor worker, blood pressure machine and pulse oximeter. To gown for exam. Side rails up. Report given to MINDY Matias.
--- NOTE | 2020-11-22 16:25 | NUR ---
ER at bedside examining patient.
--- NOTE | 2020-11-22 16:30 | NUR ---
POISON CONTROL CALLED ADVISED BY MEGHAN TO MONITOR PT FOR ANTICHOLINERGIC SYMPTOMS,WIDENING OF QRS ELEVATED TYLENOL LEVEL WITH TX NAC: 21HR TX: 1ST DOSE 150MG/KG OVER 1HR, 2ND DOSE 50MG/KG OVER 4HR,3RD DOSE 100MG/KG OVER 16HR AND CLOSE MONITORING REQUIRED FOR HYPOXIA
[2020-11-22] MEDS ORDERED: ACTIVATED CHARCOAL 50 GM ORAL.SUSP PO ONE ×2 (16:45→16:55)
[2020-11-22 17:11] LABS: BASOPHILS # (AUTO) 0.1 K/uL (0.0-0.2); BASOPHILS % (AUTO) 0.5 % (0.0-2.0); EOSINOPHILS # (AUTO) 0.1 K/uL (0.0-0.4); EOSINOPHILS % (AUTO) 1.2 % (0.0-4.0); HEMATOCRIT 41.7 % (36-54); HEMOGLOBIN 14.3 g/dL (14.0-18.0); LYMPHOCYTES # (AUTO) 2.8 K/uL (1.0-5.5); MEAN CORPUSCULAR HEMOGLOBIN 30 pg (27-31); MEAN CORPUSCULAR HGB CONC 34 % (32-36); MEAN CORPUSCULAR VOLUME 89 fL (79.0-98.0); MONOCYTES # (AUTO) 0.6 K/uL (0.0-1.0); MONOCYTES % (AUTO) 6.1 % (1.7-9.3); NEUTROPHILS # (AUTO) 6.1 K/uL (1.8-7.7); NEUTROPHILS % (AUTO) 63.2 % (40.0-70.0); PLATELET COUNT (AUTO) 208 K/uL (130-430); RED BLOOD CELL COUNT(AUTO) 4.71 MIL/uL (4.2-6.2); RED CELL DISTRIBUTION WIDTH 13.8 % (9.0-15.0); WHITE BLOOD COUNT (AUTO) 9.6 K/uL (4.8-10.8)
--- NOTE | 2020-11-22 17:17 | NUR ---
Patient moved to bed 5.
[2020-11-22 17:20] LABS: ACETAMINOPHEN 33 ug/mL (1-30); ALANINE AMINOTRANSFERASE 10 U/L (12-78); ALBUMIN 3.9 g/dL (3.4-4.8); ALCOHOL, BLOOD 252 mg/dL (<10); ASPARTATE AMINOTRANSFERASE 20 U/L (10-37); POTASSIUM 3.2 mmol/L (3.5-5.1); SODIUM SERUM 142 mmol/L (136-145); TOTAL BILIRUBIN 0.4 mg/dL (0.0-1.0)
[2020-11-22 17:21] LABS: ANION GAP 12 (5-15); CALCIUM 9.1 mg/dL (8.4-11.0); CHLORIDE 106 mmol/L (98-107); CREATININE 0.77 mg/dL (0.55-1.30); GFR AFRICAN AMERICAN 149 mL/min (>90); GLUCOSE 91 mg/dL (70-99); UREA NITROGEN, BLOOD 9 mg/dL (8-21)
--- NOTE | 2020-11-22 17:35 | NUR ---
PAULINA TO ASSUME CARE, PT HERE FROM HOME FOR ALOC/INTOXICATION. POISON CONTROL NOTIFIED OF POSSIBLE OTC MEDICATIONS, RESTLESS AND AGITATED.
[2020-11-22 17:46] LABS: BILIRUBIN,URINE NEGATIVE (NEGATIVE); BLOOD, URINE NEGATIVE (NEGATIVE); CLARITY/URINE CLEAR (CLEAR); GLUCOSE,URINE NEGATIVE (NEGATIVE); KETONES,URINE NEGATIVE (NEGATIVE); LEUKOCYTE ESTERASE ,URINE NEGATIVE (NEGATIVE); NITRITE, URINE NEGATIVE (NEGATIVE); PROTEIN URINE NEGATIVE (NEGATIVE); UROBILINOGEN,URINE 0.2 (0.2-1.0)
[2020-11-22 17:48] LABS: COLOR,URINE STRAW (YELLOW)
[2020-11-22 17:57] LABS: BARBITURATE, URINE NEGATIVE (NEG <=200); BENZODIAZEPINE, URINE NEGATIVE (NEG <=150); CANNABINOID, URINE NEGATIVE (NEG <=50); COCAINE, URINE NEGATIVE (NEG <=150); METHAMPHETAMINES SCREEN,URINE NEGATIVE (NEG <=500); OPIATE, URINE NEGATIVE (NEG <=100); PHENCYCLIDINE SCREEN,URINE NEGATIVE (NEG <=25); UR TRICYCLIC ANTIDEPRESSANTS NEGATIVE (NEG <=300); URINE AMPHETAMINE NEGATIVE (NEG <=500); URINE METHADONE NEGATIVE (NEG <=200); URINE OXYCODONE SCREEN NEGATIVE (NEG <=100); URINE PROPOXYPHENE SCREEN NEGATIVE (NEG <=300)
--- NOTE | 2020-11-22 19:50 | NUR ---
SPOKE WITH POISON CONTROL. DR ARCHIBALD GIVEN REPORT AND UPDATE
--- NOTE | 2020-11-22 20:21 | NUR ---
EASILY AROUSED, RESP UNLABORED, NO DISTRESS
--- NOTE | 2020-11-22 20:43 | NUR ---
UP AMBULATING TO BATHROOM, STEADY GAIT, RESP UNLABORED, SKIN WARM AND DRY. PT STATED HE IS FEELING BETTER, AAOX4, CLEAR MENTATION AND SPEECH
--- NOTE | 2020-11-22 21:59 | NUR ---
SPOKE WITH PSYCHIATRIST AND UPDATE PROVIDED
--- NOTE | 2020-11-22 22:11 | NUR ---
TELE PSYCH INTERVIEW IN PROGRESS, PT COMMUNICATING EFFECTIVELY
--- NOTE | 2020-11-22 22:46 | NUR ---
SPOKE WITH PSYCHIATRIST, UPDATE OF FAMILY CONTACTS PROVIDED
--- NOTE | 2020-11-22 23:18 | NUR ---
SPOKE WITH PSYCHIATRIST, PT ID TO GO WITH BROTHER CHRIS AND FOLLOW UP WITH HIS THERAPIST.
--- NOTE | 2020-11-22 23:19 | NUR ---
Patient given written and verbal discharge instructions and verbalizes understanding. ER MD discussed with patient the results and treatment provided. Patient in stable condition. ID arm band removed. Patient educated on pain management and to follow up with PMD. Pain Scale 0/10 Opportunity for questions provided and answered.
[2020-11-22 23:20] VITALS: BP_SYST 119
== END 2020-11-22 23:20 | disposition home or self-care (01) ==
LOC: SED 16:11
DX: T39.1X2A Poisoning by 4-Aminophenol derivatives, intentional self-harm, initial encounter (principal); F32.9 Major depressive disorder, single episode, unspecified; E87.6 Hypokalemia; Z20.822 Contact with and (suspected) exposure to COVID-19; Z88.5 Allergy status to narcotic agent; Z88.8 Allergy status to other drugs, medicaments and biological substances; Y92.89 Other specified places as the place of occurrence of the external cause
CPT/HCPCS: 36415; 80053; 80307; 81003; 85025; 87081; 87426; 93005; 99285; G0480; G0481; G0482